=== PATIENT | female | born 1975 | race African-American/Black ===

== ENCOUNTER 2017-08-28 12:23 | Emergency (ER) | payer SELFPAY ==
[~2017-08-28] VITALS: Ht 172.7 cm; Wt 53.0 kg
[~2017-08-28 12:23] MED LIST: Z.0.NO CURRENT MEDS
[2017-08-28 12:27] VITALS: BP 127/73; PULSE 101; RESP 14; TEMP 101.8; O2SAT 96
[2017-08-28] MEDS ORDERED: MOME17I EACH NARE (14:17)
[2017-08-28] MEDS ORDERED: OSEL75 PO (14:17)
--- NOTE | 2017-08-28 14:18 | PD ---
HPI Chief Complaint: Cold / Flu Symptoms Time Seen by Provider: 14:16 Travel History International Travel<30 days: No Contact w/Intl Traveler<30days: No Traveled to known affect area: No History of Present Illness HPI 42-year-old female presents to emergency department complaining of fever, headache, body aches, nasal congestion, cough, sore throat since yesterday. MAXIMUM TEMPERATURE of 103.2. Denies vomiting. Reports diarrhea. Denies chest pain, shortness of breath, abdominal pain. Has taken ibuprofen for symptom management and last took it at approximate 7 AM this morning. Relieving or aggravating factors. No known sick contacts. No primary care provider. Aspirin is listed as an allergy on her chart, but she says it is not a true allergy. Denies significant past medical history. Has no other medical complaints. No other modifying factors or associated signs and symptoms. PFSH Past Medical History Diminished Hearing: No ?: Not : 1 Para: 1 Miscarriage: 2 : 0 Social History Alcohol Use: No Tobacco Use: Yes (1/2 PK PER DAY) Allergies-Medications (Allergen,Severity, Reaction): Coded Allergies: aspirin (Unverified Adverse Reaction, Mild, OD'S AT AGE 15-TOLD NOT TO TAKE, 08/28/17) Reported Meds & Prescriptions Reported Meds & Active Scripts Active Nasonex Nasal [place] (Mometasone Furoate) 50 Mcg/Act Naspr 2 [place] EACH NARE DAILY PRN Tamiflu (Oseltamivir Phosphate) 75 Mg Cap 75 Mg PO BID 5 Days Reported No Current Meds (Miscellaneous Medication) Misc Review of Systems Except as stated in HPI: all other systems reviewed are Neg Physical Exam Narrative GENERAL: Well-nourished, well-developed black female patient, in no acute distress; afebrile, nontoxic-appearing SKIN: Warm and dry. No rash. HEAD: Atraumatic. Normocephalic. EYES: Pupils equal and round. No scleral icterus. No injection or drainage. ENT: Mucosa pink and moist. No erythema or exudates. No uvular edema. No uvular , palatal, or tonsillar deviation. Airway patent. EARS: Bilateral pinnae and external canals appear within normal limits. Bilateral tympanic membranes without erythema, dullness or perforation. NECK: Trachea midline. No lymphadenopathy. CARDIOVASCULAR: Regular rate and rhythm. No murmur appreciated. RESPIRATORY: No accessory muscle use. Clear to auscultation. Breath sounds equal bilaterally. No retractions or tachypnea. GASTROINTESTINAL: Abdomen soft, non-tender, nondistended. Hepatic and splenic margins not palpable. Bowel sounds are active 4 quadrants. MUSCULOSKELETAL: No obvious deformities. No clubbing. No cyanosis. No edema. NEUROLOGICAL: Awake and alert. Oriented 3. No obvious cranial nerve deficits. Motor grossly within normal limits. Normal speech. Moves all extremities. 5/5 strength to all extremities. PSYCHIATRIC: Appropriate mood and affect; insight and judgment normal. Data Data Last Documented VS Vital Signs Date Time Temp Pulse Resp B/P (MAP) Pulse Ox O2 Delivery O2 Flow Rate FiO2 08/28/17 12:27 101.8 101 14 127/73 (91) 96 Room Air Orders Orders Influenzae A/B Antigen (08/28/17 13:03) Ibuprofen (Motrin) (08/28/17 14:30) Ed Discharge Order (08/28/17 14:23) MDM Medical Decision Making Medical Screen Exam Complete: Yes Emergency Medical Condition: Yes Medical Record Reviewed: Yes Differential Diagnosis Influenza, pneumonia, upper respiratory infection, viral illness Narrative Course 42-year-old female positive for influenza A. Fever of 101.8 in the ER. Nontoxic-appearing. Reports MAXIMUM TEMPERATURE of 103.2. Ibuprofen ordered. Tamiflu and Nasonex prescribed for home. Instructed patient to follow up with primary care provider. Patient verbalizes understanding and agreement with treatment plan. Patient is medically cleared and stable for discharge. Discussed reasons to return to the emergency department. Patient agrees with treatment plan. The patients vital signs are stable and the patient is stable for outpatient follow-up and treatment. Patient discharged home, stable and in no acute distress. Diagnosis Primary Impression: Influenza A Referrals: [facility] Primary Care Physician Patient Instructions: General Instructions, Influenza (ED) Departure Forms: Tests/Procedures, Work Release Special Instructions: No work until fever free for 24 hours Additional Instructions: Ibuprofen or Tylenol as directed and as needed to reduce fever; may alternate ibuprofen and Tylenol as needed every 3 hours to minimize fever [id number] cold/flu medications as directed and as needed for symptom management Get plenty of sleep/rest Drink plenty of fluids to prevent dehydration; such as Gatorade, Powerade, Pedialyte [place] diet to encourage nutrition such as crackers, fruit, applesauce, toast, soup etc. Use an air humidifier/turn off ceiling fans Follow-up with your primary care provider within 1 day Return immediately to the emergency department with worsening of symptoms Med/Other Pt SpecificInfo: Prescription(s) given Scripts Mometasone Nasal [place] (Nasonex Nasal [place]) 50 Mcg/Act Naspr 2 SPRAY EACH NARE DAILY Y for NASAL CONGESTION, #1 BOTTLE 0 Refills Prov: Isis Mcknight 08/28/17 Oseltamivir (Tamiflu) 75 Mg Cap 75 MG PO BID for Mgmt Viral Infection for 5 Days, #10 CAP 0 Refills Prov: Isis Mcknight 08/28/17 Disposition: 01 DISCHARGE HOME Condition: Stable Isis Mcknight Aug 28, 2017 14:18
[2017-08-28] MEDS ORDERED: IBUPROFEN 800 MG TAB PO ONE (14:30)
== END 2017-08-28 14:42 | disposition home or self-care (01) ==
LOC: NEPK 12:23
DX: J09.X2 Influenza due to identified novel influenza A virus with other respiratory manifestations (principal); F17.200 Nicotine dependence, unspecified, uncomplicated; Z88.6 Allergy status to analgesic agent
CPT/HCPCS: 87804; 99284